=== PATIENT | male | born 1990 | race Hispanic/Latino ===

== ENCOUNTER 2020-04-06 03:42 | Emergency (ER) | payer OTHER ==
[2020-04-06] MEDS ORDERED: Lidocaine 1% w/Epinephrine 1:100K 20 ML VIAL ONE (04:17)
[2020-04-06] MEDS ORDERED: Adacel (T-DAP) 0.5 ML SYRINGE ONE (05:10)
--- NOTE | 2020-04-06 09:34 | CT ---
PRELIMINARY REPORT/[facility]/AFTER HOURS PROCEDURE FINAL REPORT I agree with the preliminary report provided. No definite acute facial fracture is evident. There is soft tissue swelling involving the right perio rbital regions, however, the right globe and lens are intact. There is mucosal thickening seen within the paranasal sinuses without an air-fluid level. The visualized mandible appears intact. Zygomatic arches are intact. The orbital dawson and orbital rims appear intact. The osseous nasal septum and sonya al bones appear intact. CODE QA POS: BH
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
== END 2020-04-06 08:59 | disposition home or self-care (01) ==
LOC: ERS 03:42
DX: S01.111A Laceration without foreign body of right eyelid and periocular area, initial encounter (principal); S01.81XA Laceration without foreign body of other part of head, initial encounter; F10.129 Alcohol abuse with intoxication, unspecified; Y04.0XXA Assault by unarmed brawl or fight, initial encounter
CPT/HCPCS: 12013; 70450; 70486; 90471; 90715

== ENCOUNTER 2020-04-11 14:42 | Emergency (ER) | payer OTHER | END 2020-04-11 15:23 | disposition home or self-care (01) | LOC: ERS 14:42 | DX: S01.112D Laceration without foreign body of left eyelid and periocular area, subsequent encounter (principal); Y04.0XXD Assault by unarmed brawl or fight, subsequent encounter ==